=== PATIENT | male | born 1955 | race Caucasian/White ===

== ENCOUNTER 2016-09-06 16:15 | Emergency (ER) | payer OTHER ==
--- NOTE | 2016-09-06 16:42 | CPEKG ---
Heart Rate: 77 RR Interval: 779 P-R Interval: 168 QRSD Interval: 128 QT Interval: 392 QTC Interval: 444 P Winnie: 53 QRS Winnie: 70 T Wave Winnie: 7 EKG Severity - ABNORMAL ECG - EKG Impression: SINUS RHYTHM EKG Impression: PROBABLE LEFT ATRIAL ABNORMALITY EKG Impression: RIGHT BUNDLE BRANCH BLOCK Electronically Signed By: Miguel Winston 06-Sep-2016 21:22:25
[2016-09-06 17:00] LABS: % IMMATURE GRANULYOCYTES 0.6 % (0.0-1.1); ABSOLUTE IMMATURE GRANULOCYTES 0.03 10^3/uL (0.00-0.10); ADD DIFF? NO; ADD MORPH? NO; ADD SCAN? NO; ATYPICAL LYMPHOCYTE FLAG 10 (0-99); FRAGMENT RBC FLAG 0 (0-99); HEMATOCRIT 46.8 % (40.0-51.0); LEFT SHIFT FLG 0 (0-99); LIPEMIA HEMOLYSIS FLAG 90 (0-99); MEAN CELL HEMOGLOBIN 31.2 pg (27.9-34.1); MEAN CELL HEMOGLOBIN CONCENTR. 36.3 g/dL (32.4-36.7); MEAN CELL VOLUME 85.9 fL (81.5-99.8); MEAN PLATELET VOLUME 10.5 fL (8.7-11.7); PLATELET CLUMPS FLAG 10 (0-99); PLATELET COUNT 186 10^3/uL (150-400); RED BLOOD CELL COUNT 5.45 10^6/uL (4.40-6.38); RED CELL DISTRIBUTION WIDTH 12.6 % (11.5-15.2)
[2016-09-06 17:08] LABS: INR 1.07 (0.83-1.16); PROTIME(PATIENT) 13.8 SEC (12.0-15.0)
--- NOTE | 2016-09-06 17:08 | EDPHY ---
General - Diagnostics EKG: I reviewed patient's EKG. See [facility] system for interpretation Imaging: I viewed and interpreted images myself - History Smoking Status: Never smoked Narrative: CHIEF COMPLAINT: Chest Pain HISTORY OF PRESENT ILLNESS: Chest pain on the left side this started sometime Tuesday morning or night. It is mostly reproducible, located over the left back. Does not radiate. Currently 2/10. Up to a 6/10 depending what kind of movement he does. No nausea, vomiting or diaphoresis. No shortness of breath. No recent travel, surgery or illness. No history of venous thrombotic event. No exogenous testosterone. No lower extremity swelling, erythema or pain. Pain was no worse when hiking on Tuesday. Today while he was at his dentist, and they told that his blood pressure was high. He asked him to recheck it manually and it was still high. Reportedly the pressure was 160/90 by manual blood pressure. He has no history of hypertension, nor does he take any medications for this. No previous workup for chest pain. 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 No other associated complaints or modifying factors. He informs me that he took 325 mg aspirin this morning. FAMILY HISTORY CARDIAC: None PRIOR CARDIAC WORKUP: None REVIEW OF SYSTEMS: Ten systems reviewed and are negative unless otherwise noted in the HPI EXAMINATION: General Appearance: Alert, no distress Head: normocephalic, atraumatic Eyes: Pupils equal and round, no conjunctival pallor or injection ENT, Mouth: Mucous membranes moist. Uvula midline. Neck: Normal inspection, supple, non-tender Respiratory: Lungs are clear to auscultation. No wheeze, rhonchi or crackles. Cardiovascular: Regular rate and rhythm. No murmur. Pulses intact distally. Gastrointestinal: Abdomen is soft and nontender Back: non-tender, no bony abnormalities Neurological: A&O, nonfocal, normal gait Skin: Warm and dry, no rash Extremities: Nontender, no pedal edema. No erythema. No palpable cords. No pain with passive dorsiflexion of either leg. No evidence of DVT. Range of motion is symmetric. Psychiatric: Mood and affect normal DIFFERENTIAL DIAGNOSES: Including but not limited to in no particular order: Acute Chest Pain, ACS, Stable Angina, Pneumonia, PE, duodenitis, gastritis, esophagitis, GERD MDM: 4:50 p.m. Chest pain since Tuesday. The pain is mostly reproducible on the left side but not entirely. Also concern is his blood pressure has been elevated, 1st noticed by his dentist today. Had readings of nearly 200 over 120 there, with a blood pressure of 179/99 here. He is currently a 2/10 at rest. No nausea, vomiting or diaphoresis. No history of hypertension. He is in no acute distress. Labs and chest x-ray are pending at this time. 6:00 p.m. Laboratory studies are negative including a negative D-dimer and troponin. Patient has had pain since Tuesday. EKG does show a right bundle-branch block sub mm depression in the lateral/anterolateral leads. I discussed the case with Dr. Harkins and she recommends admission for observation and stress test. I have discussed this with the patient he agrees with the plan. We are still waiting on the chest x-ray and I will likely proceed with admission. 6:50 p.m. Chest x-ray is negative. I have discussed the case with the on-call dye weigher helper Dr. Alba. I requested a stress test tomorrow. Dr. Alba says the patient can contact the office in the morning to see if there is availability. I then discussed the case with Dr. Winston, and he personally spoke with Dr. Oconnor. Dr. Oconnor has arranged for the patient to have a nuclear stress test tomorrow morning, given that he has a RBBB. The patient is to arrive at the [facility] on [address] at 9:00 a.m.. I have discussed this in great detail with the patient. I offered admission for observation although we have ruled out acute coronary syndrome. The patient prefers to be discharged home and to return for stress test in the morning. He is discharged home stable condition with the above instructions. He is to return to ER for any worsening of chest pain, sweating, nausea, vomiting or shortness of breath. He is comfortable with this plan and discharged home stable condition. EKG: Interpreted by Dr. Harkins NSR with right bundle branch block. T-waves inverted only in AVR and V1. There is a sub mm ST depression in anterolateral leads. No previous EKG for comparison SUPERVISION: Patient was evaluated in conjunction with the supervising physician. Please see their note for details. (Fritz Nick) - Diagnostics Imaging Results: Imaging Impressions Chest X-Ray 09/06/16 18:01 Impression: Mild peribronchial thickening suggesting airways disease/bronchitis. Discussion: The patient was evaluated and managed by the Physician Assembler Camper/ Nurse Practitioner. I discussed the patient's presentation and course with the midlevel provider with them and agree with the evaluation. My co-signature indicates that I have reviewed this chart and I agree with the findings and plan of care as documented. I am the secondary supervising physician. (Veronika Harkins) - Objective Vital Signs: Initial Vital Signs Temperature (C) 36.9 C 09/06/16 16:18 Heart Rate 86 09/06/16 16:18 Respiratory Rate 18 09/06/16 16:18 Blood Pressure 179/99 H 09/06/16 16:18 O2 Sat (%) 98 09/06/16 16:18 O2 Delivery Mode Room Air Allergies/Adverse Reactions: No Known Allergies Allergy (Verified 09/06/16 16:22) Home Medications: Medication Instructions Recorded NK [No Known Home Meds] 11/11/14 Laboratory Results: Laboratory Results 09/06/16 16:50 09/06/16 16:50 09/06/16 09/06/16 09/06/16 16:50 16:50 16:50 WBC 5.45 10^3/uL 10^3/uL (3.80-9.50) RBC 5.45 10^6/uL 10^6/uL (4.40-6.38) Hgb 17.0 g/dL g/dL (13.7-17.5) Hct 46.8 % % (40.0-51.0) MCV 85.9 fL fL (81.5-99.8) MCH 31.2 pg pg (27.9-34.1) MCHC 36.3 g/dL g/dL (32.4-36.7) RDW 12.6 % % (11.5-15.2) Plt Count 186 10^3/uL 10^3/uL (150-400) MPV 10.5 fL fL (8.7-11.7) Neut % (Auto) 55.9 % % (39.3-74.2) Lymph % (Auto) 31.4 % % (15.0-45.0) [place] % (Auto) 10.3 % % (4.5-13.0) Eos % (Auto) 0.9 % % (0.6-7.6) Baso % (Auto) 0.9 % % (0.3-1.7) Nucleat RBC Rel Count 0.0 % % (0.0-0.2) Absolute Neuts (auto) 3.05 10^3/uL 10^3/uL (1.70-6.50) Absolute Lymphs (auto) 1.71 10^3/uL 10^3/uL (1.00-3.00) Absolute Monos (auto) 0.56 10^3/uL 10^3/uL (0.30-0.80) Absolute Eos (auto) 0.05 10^3/uL 10^3/uL (0.03-0.40) Absolute Basos (auto) 0.05 10^3/uL 10^3/uL (0.02-0.10) Absolute Nucleated RBC 0.00 10^3/uL 10^3/uL (0-0.01) Immature Gran % 0.6 % % (0.0-1.1) Immature Gran # 0.03 10^3/uL 10^3/uL (0.00-0.10) PT 13.8 SEC SEC (12.0-15.0) INR 1.07 (0.83-1.16) APTT 27.5 SEC SEC (23.0-38.0) D-Dimer < 0.27 ug/mLFEU ug/mLFEU (0.00-0.50) Sodium 140 mEq/L mEq/L (134-144) Potassium 4.2 mEq/L mEq/L (3.5-5.2) Chloride 106 mEq/L mEq/L (97-110) Carbon Dioxide 20 mEq/l L mEq/l (22-31) Anion Gap 14 mEq/L mEq/L (8-16) BUN 20 mg/dL mg/dL (7-23) Creatinine 0.8 mg/dL mg/dL (0.7-1.3) Estimated GFR > 60 Glucose 94 mg/dL mg/dL (70-100) Calcium 9.8 mg/dL mg/dL (8.5-10.4) Troponin I < 0.012 ng/mL ng/mL (0-0.034) NT-Pro-B Natriuret Pep 21 pg/mL pg/mL (0-125) Lipase 200.0 IU/L IU/L (23-300) Departure - Departure Disposition: Home, Routine, Self-Care Clinical Impression: Right bundle branch block Chest pain Qualifiers: Chest pain type: unspecified Qualified Code(s): R07.9 - Chest pain, unspecified Condition: Good Instructions: Chest Pain (ED) Additional Instructions: Follow-up tomorrow morning at 9:00 a.m. at [facility] with Dr. Oconnor. Return to ER for any worsening of pain Referrals: ALE STEVENSON [Primary Care Provider] - As per Instructions Wilson Oconnor MD [Medical Doctor] - 1 day without fail (9:00 a.m. tomorrow at [facility])
[2016-09-06 17:09] LABS: APTT 27.5 SEC (23.0-38.0)
[2016-09-06 17:22] VITALS: RESP 16; TEMP 97.9
[2016-09-06 17:35] LABS: ANION GAP 14 mEq/L (8-16); CALCIUM 9.8 mg/dL (8.5-10.4); CARBON DIOXIDE 20 mEq/l (22-31); CHLORIDE 106 mEq/L (97-110); CREATININE 0.8 mg/dL (0.7-1.3); GLOMERULAR FILTRATION RATE > 60; GLUCOSE 94 mg/dL (70-100); POTASSIUM 4.2 mEq/L (3.5-5.2); SODIUM 140 mEq/L (134-144)
[2016-09-06 17:45] LABS: TROPONIN I < 0.012 ng/mL (0-0.034)
[2016-09-06 19:02] VITALS: BP 153/90; PULSE 77; O2SAT 95
== END 2016-09-06 19:28 | disposition home or self-care (01) ==
DX: I45.10 Unspecified right bundle-branch block (principal)